=== PATIENT | male | born 1985 | race American Indian/Alaskan Native ===

== ENCOUNTER 2024-04-03 22:46 | Emergency (ER) | payer OTHER ==
[2024-04-03] MEDS: Acetaminophen 325 MG Tab PO ONE (23:17)
[2024-04-04] MEDS: cefTRIAXone 1 GM, Lidocaine 1% 2.1 ML IM ONE
== END 2024-04-04 00:06 | disposition home or self-care (01) ==
LOC: DL.ED 22:46
DX: J02.0 Streptococcal pharyngitis (principal); E86.9 Volume depletion, unspecified; F17.210 Nicotine dependence, cigarettes, uncomplicated
CPT/HCPCS: 87428; 87430; 96372; 99283; A9270; J0696; J3490